=== PATIENT | female | born 1970 | race Two or more races ===

== ENCOUNTER → 2022-11-07 | Outpatient (CLI) | payer OTHER, SELFPAY ==
--- NOTE | 2022-11-07 | IMM_PTH ---
PATIENT: NINOSKA CASH LOC: [facility] U#:[id number] AGE/SX: 51/F ROOM: RE11/07/[address]: Dr. Ladi Ortega MD : 1970 BED: DIS: 11/07/2022 SPEC #: [id number] RECD: 11/11/22 13:12 STATUS: ANTHONY REQ #: [id number] LEON: 11/07/22 00:[address]: Ladi Ortega DEPT: IMMUNOHISTOCHEMISTRY RECD BY: Venessa Barrios ENTERED: 11/11/22 13:15 SP TYPE: IMMUNO OTHR DR: GERALD VILLALBA, DIGITAL MARKETING PROJECT MANAGER-C Tissues: Axillary lymph node, NOS Procedures: RCC (add) NAPSIN A (add) CK20 (add) CK5-6 (add) CK7 (add) CK8 (add) E-CAD (add) HEP PAR (add) HER2 KAE (add) KI-67 (add) MAMM (add) P53 (add) NC (add) TTF1 (add) Pankeratin (add) GATA3 (add) P40 (add) ER (initial) PHYSICIAN & INSTITUTION [place] [id number] SPECIMEN INFORMATION: Tissue Source: Right lymph node Clinical Info: Metastatic right breast cancer Specimen Number: [id number] CPT code: 03595, 15264 x14, 01790 x3 METHODOLOGY: Deparaffinized sections of prefer/formalin-fixed tissue or PAP/DQ stained slides are incubated with monoclonal/polyclonal antibodies/oligonucleotide probes. Localization is made via biotin free immunoperoxidase method. Appropriate controls are performed and reacted as expected. Results on target cell population are indicated in the following table: RESULTS: ANTIBODY / CLONE RESULT E-Cad (ECH-6) positive Mammaglobin (31A5) positive GATA3 (L50-823) positive, focal AE1-3 (AE1/AE3/PCK26) positive CK7 (OV-TL12/30) positive CK8 (80porxD19) positive CK20 (KS20.8) negative TTF-1 (8G7G3/1) negative Napsin A (Rabbit Polyclonal) negative HepPar (OCh1E5) negative RCC (PN-15) positive, focal CK5-6 (D5 & 1684) positive P40 (BC28) negative P53 (DO-7) negative, null pattern Ki-67 (30-9) positive, low ~1% MORPHOMETRIC ANALYSIS ER (clone 6F11) 0% NC (clone 16/1E2) 0% Her-2Neu (clone CB11) 3+ The prognostic test for HER2 is performed on formalin-fixed paraffin embedded tissue. A 3+ (positive) staining pattern is defined as intense, homogeneous, complete, circumferential membranous staining in >10% of contiguous tumor cells. A similar weak (2+) staining pattern is interpreted as equivocal. WAYNE follow-up testing is recommended for all equivocal cases. Positivity/negativity for ER/NC is reported if > or < 1% of the tumor cells are immuno- reactive, respectively. The ASCO/CAP criteria is used for scoring. Reference: Journal of Clinical Oncology, 2013; 31:1778-6563 & 2010; 16:9608-2951. Duration of fixation: 53.5 Hrs; Sample Adequate: Yes. These assays have not been validated on decalcified tissues. Results should be interpreted with caution given the likelihood of false negativity on decalcified specimens. These tests were developed and their performance characteristics determined by [facility]. They may not have been cleared or approved by the U.S. Food and Drug Administration. The FDA has determined that such clearance or approval is not necessary. The above immunohistochemical/dualISH markers are ordered and reviewed by the Pathologist. INTERPRETATION: Right lymph node, biopsy: Metastatic carcinoma, consistent with primary (ductal carcinoma). Negative for estrogen receptors (unfavorable prognostic indicator). Negative for progesterone receptors (unfavorable prognostic indicator). Positive for overexpression of HOV5xty. SJ:mark 11/12/2022
--- NOTE | 2022-11-07 | LYM_PTH ---
PATIENT: NINOSKA CASH LOC: [facility] U#:[id number] AGE/SX: 51/F ROOM: RE11/07/[address]: Dr. Ladi Ortega MD : 1970 BED: DIS: 11/07/2022 SPEC #: [id number] RECD: 11/07/22 14:03 STATUS: ANTHONY LALIT #: [id number] LEON: 11/07/22 00:[address]: Ladi Ortega DEPT: SURGICAL PATHOLOGY RECD BY: Isabel Mistry ENTERED: 11/10/22 09:32 SP TYPE: LYM NODES MANDI DR: DO GERALD [place], MEDICAL SOCIAL CONSULTANT-C Tissues: LYMPH NODE BIOPSY Procedures: Surgery Specimen Level IV HEADER OPERATION: Biopsy of right lymph node PRE-OP DIAGNOSIS: Metastatic right breast cancer TISSUE SUBMITTED: Right lymph node tissue MICROSCOPIC DIAGNOSIS Right lymph node tissue, core biopsy: Metastatic carcinoma consistent with breast primary (ductal carcinoma). See comment. SJ:mark 11/11/2022 COMMENT The metastatic tumor measures 0.8 cm in greatest length. Immunohistochemistry ([id number]) supports the above diagnosis. ER/VA/Ejx2pcu studies are being performed on sections of tumor and the results from this study will be reported separately ([id number]). Case has been reviewed in consultation with Dr. Bey who concurs with the above diagnosis. IDC:AM MICROSCOPIC DESCRIPTION Slides are reviewed. GROSS DESCRIPTION Received in saline and then post fixed in formalin is one container labeled with the patient's name and designated right lymph node tissue. The specimen consists of multiple elongated fragments of friedman-yellow fibroadipose tissue that in aggregate measure 1.5 x 0.3 x 0.1 cm. The specimen is totally submitted in one cassette. / MATEUSZ:mark 11/10/2022 TC:0 CPT: 15623
== END | disposition home or self-care (01) ==
PROVIDERS: PCP Registered Nurse; Referring Provider Surgery; Visit Provider Surgery
DX: C50.911 Malignant neoplasm of unspecified site of right female breast (principal); N63.10 Unspecified lump in the right breast, unspecified quadrant
CPT/HCPCS: 88305; 88341; 88342

== ENCOUNTER → 2022-11-11 | Outpatient (CLI) | payer OTHER, SELFPAY ==
--- NOTE | 2022-11-11 11:00 | US_ITS ---
STUDY: ABDOMINAL ULTRASOUND - RIGHT UPPER QUADRANT REASON FOR VISIT: Female, 51 years old jaundice, R/O biliary obstruction TECHNIQUE: Ultrasound evaluation of the right upper quadrant was performed with real-time and static canela-scale imaging. TECHNICAL QUALITY: Adequate. COMPARISON: None. FINDINGS: Liver: The liver measures 15.1 cm. There is a heterogeneous echogenicity of the liver. The bile ducts are dilated. There is hepatic color flow. The direction of portal flow is hepatopetal. Multiple hypoechoic solid nodular seen. The largest in the right lobe measures 4.8 cm x 5 cm x 2.7 cm. The largest in the left lobe measures 3.3 cm x 4.3 cm x 2.9 cm. Metastatic disease should be ruled out. Gallbladder: Normal distended gallbladder. The gallbladder wall measures 2.4 mm. There is a negative sonographic Murray''s sign. There is no pericholecystic fluid. There are no gallstones. Sludge is seen within the gallbladder lumen. Common Bile Duct (C.B.D.): The common bile duct is dilated and measures 7.9 mm. Pancreas: There is evidence of a 1.6 cm x 1.8 cm x 1 cm mass in the head of the pancreas. Right Kidney: Normal size of the right kidney. The right kidney measures 11.1 cm x 4.3 cm x 3.5 cm. Normal renal cortex. The right cortex measures 1.1 cm. There is no demonstrated renal mass or cyst. There is no right hydronephrosis. US/Liver IMPRESSION: Multiple solid nodules throughout the liver suggestive of metastatic deposits. 1.6 cm x 1.8 cm x 1 cm mass in the head of the pancreas. Sludge is seen within the gallbladder lumen. Intrahepatic biliary ductal dilatation as well as dilatation of the common bile duct. Electronically Signed: Matias Ward MD at 15:31 EDT ,
== END | disposition home or self-care (01) ==
PROVIDERS: PCP Registered Nurse; Referring Provider Student in an Organized Health Care Education/Training Program; Visit Provider Student in an Organized Health Care Education/Training Program
DX: R17 Unspecified jaundice (principal); K80.51 Calculus of bile duct without cholangitis or cholecystitis with obstruction
CPT/HCPCS: 76705

== ENCOUNTER 2022-11-13 16:50 | Inpatient (IN) | payer OTHER, SELFPAY ==
[2022-11-13 16:51] VITALS: BP 118/84; PULSE 111; RESP 18; TEMP 36.6; O2SAT 19; BMI 21.8
--- NOTE | 2022-11-13 17:27 | EX.ED.DYSGE1 ---
HPI History of Present Illness Chief Complaint: General Illness Informant: patient Narrative Narrative: 51-year-old female with history of stage IV metastatic breast cancer to the bones presenting with new onset of jaundice. Patient had outpatient blood work last week on 11/06 which showed elevated bilirubin as well as a transaminitis. She had outpatient ultrasound of the liver 2 days ago which showed multiple solid nodules of the liver suggestive of metastatic deposits, a mass in the head of the pancreas and intrahepatic biliary ductal dilation as well as dilation of the common bile duct. This is concerning for an obstructive process. Patient was seen by her radiation oncologist today and sent to the emergency room for further evaluation and GI consult. Patient notes she had her first radiation today. She continues to have significant back pain but has been going on for the past 2-month since her diagnosis. She does have a compression fracture. She is on 10 mg oral oxycodone every 6 hours. Because of that she has been dealing with some constipation. She did develop nausea after radiation today which is new. Patient is undergoing palliative radiation with Dr. Arnold. Patient denies any other complaints at this time. [facility] Medical History Breast cancer Compression fracture Constipation Juanita's disease Hypothyroid Home Medications mistletoe 0.05 mg/mL subcutaneous solution 0.5 mg subcut Q4D 11/06/22 [History Last Taken Unknown] levothyroxine 75 mcg capsule (Tirosint) 75 mcg PO DAILY THYROID 11/06/22 [History Last Taken 11/13/22] liothyronine 5 mcg tablet 5 mcg PO DAILY THYROID 11/06/22 [History Last Taken 11/13/22] melatonin 5 mg tablet 15 mg PO QHS SLEEP 11/13/22 [History Last Taken 11/12/22] oxycodone 5 mg tablet 10 mg PO Q6H pain 11/13/22 [History Last Taken 11/13/22] Allergy/AdvReac Type Severity Reaction Status Date / Time adhesive tape Allergy Mild Rash Verified 11/13/22 16:53 Iodinated Contrast Media Allergy Mild Rash Verified 11/13/22 16:53 Sulfa (Sulfonamide Allergy Mild Rash Verified 11/13/22 16:53 Antibiotics) Family History Father Depression ALS (amyotrophic lateral sclerosis) Sister Depression Grandmother Breast cancer Cervical cancer Mother Arthritis Social History Smoking Status: Never smoker alcohol intake: current alcohol intake frequency: holidays/special occasions only substance use type: does not use ROS ROS ED Constitutional Constitutional ED: Denies chills or fever(s) Respiratory/Chest Respiratory/Chest: Denies cough or dyspnea Gastrointestinal Gastrointestinal: Reports constipation and nausea; Denies abdominal pain, diarrhea or vomiting Musculoskeletal Musculoskeletal: Reports back pain; Denies arthralgias Integumentary Denies rash Neurologic Neurologic: Denies headache(s) EXAM Physical Exam Const Vital Signs: 11/13/22 16:51 11/13/22 17:44 11/13/22 18:20 Temperature 97.9 F 98.6 F Temperature Source Temporal Oral Pulse Rate 111 H 100 Respiratory Rate 18 18 Respiratory Effort Normal Non-Labored Respiratory Pattern Normal Blood Pressure 118/84 H 142/91 H Blood Pressure Mean 95 108 Pulse Ox 19 96 Oxygen Delivery Method Room Air Room Air Positive well nourished and well developed General Appearance ED: well developed and NAD HEENT Reports moist mucous membranes Eyes PERRL and EOMs intact bilaterally General Eye ED: Yes scleral icterus Neck supple Resp normal respiratory effort and clear to auscultation bilaterally Cardio regular rate, regular rhythm and no murmurs GI normal to inspection, nondistended, normoactive bowel sounds and non-tender Inspection: Negative for abdominal distention Extremity normal to inspection Neuro oriented x3 Sensorium / Orientation: alert Motor Exam: Negative for general weakness Psych mental status grossly normal Skin no rashes or lesions noted and no wounds MDM MDM MDM Narrative Medical decision making narrative: Patient is evaluated for concern of obstructive jaundice, likely from metastatic disease. Patient is undergoing palliative radiation treatment and has metastatic breast cancer. She has been dealing with severe back pain associated with this and has associated compression fractures. She had outpatient ultrasound which showed signs of biliary ductal dilation as well as a pancreatic head mass. Lab work is obtained. Patient given IV morphine and Zofran. She started on IV Zosyn and CT of the abdomen pelvis is obtained after discussion with GI on-call, Dr. Holland. Likely he will perform ERCP tomorrow. Patient be admitted to the hospitalist service. Patient is informed of this plan of care. Case is discussed with admitting physician, Dr. Castro. Lab Data Attestation: I reviewed the patient's lab results. Labs: Laboratory Results - last 24 hr 11/13/22 11/13/22 17:15 17:30 WBC 7.4 RBC 4.18 L Hgb 11.8 L Hct 37.8 MCV 90.4 MCH 28.2 MCHC 31.2 L RDW Std Deviation 49.4 H RDW Coeff of Gina 15.3 H Plt Count 477 H MPV 9.0 Immature Gran % (Auto) 1.500 H Neut % (Auto) 76.3 H Lymph % (Auto) 9.7 L [place] % (Auto) 11.3 H Eos % (Auto) 0.5 Baso % (Auto) 0.7 Absolute Neuts (auto) 5.7 Absolute Lymphs (auto) 0.72 L Nucleated RBC % 0 Sodium 133 L Potassium 4.0 Chloride 94 L Carbon Dioxide 26.0 Anion Gap 13 BUN 8 Creatinine 0.60 Estim Creat Clear Calc 79.68 Est GFR (MDRD) Af Amer 136 Est GFR (MDRD) Non-Af 113 BUN/Creatinine Ratio 13.4 Glucose 98 Calcium 9.9 Total Bilirubin 8.40 H Direct Bilirubin 6.81 H AST 282 H ALT 171 H Alkaline Phosphatase 951 H Total Protein 7.5 Albumin 2.6 L Globulin 4.9 H Lipase 71 Urine Color Brown Urine Clarity Clear Urine pH 6.0 Ur Specific [place] 1.025 Urine Protein 30 H Urine Glucose (UA) Normal Urine Ketones 150 A* Urine Occult Blood 10 H Urine Nitrite Positive H Urine Bilirubin 6 H Urine Urobilinogen 4 H Ur Leukocyte Esterase 25 H Urine RBC 0 SEEN Urine WBC 0-5 SEEN Ur Squamous Epith Cells 0-5 SEEN Urine Bacteria 1+ Urine Mucus 0 SEEN Radiography Diagnostic Testing: Clinical Impression(s) from Imaging Studies Abdomen/Pelvis CT 11/13/22 17:39 IMPRESSION: (NOT LISTED IN ORDER OF SIGNIFICANCE) 63 mm soft tissue mass with calcifications of the right breast. Diffuse right breast skin thickening concerning for breast carcinoma. 15 mm medial right breast nodule may be a metastatic focus. There is a pathologic compression fracture of T12. There is bilateral pneumonia. There are bilateral pleural effusions. Stable diffuse metastatic lesions to the liver. Diffuse retroperitoneal adenopathy. 11 mm dilated common bile duct with a soft tissue mass around the level of the pancreatic head. This may be a pancreatic mass versus adenopathy. Stable diffuse metastatic disease in the bones. Other findings as above. Electronically Signed: Marco Gill MD at 18:20 EDT , Management Discussion w/another healthcare provider: Hospitalist and Cold Storage Supervisor Discharge Plan Triage Chief Complaint: General Illness ED Provider: Shy Stout Dx/Rx/DC Orders Clinical Impression: Blockage of a bile duct, Stage IV breast cancer in female, Jaundice, Mass of head of pancreas Prescriptions: No Action levothyroxine [Tirosint] 75 mcg capsule 75 mcg PO DAILY liothyronine 5 mcg tablet 5 mcg PO DAILY mistletoe 0.05 mg/mL solution 0.5 mg subcut Q4D oxycodone 5 mg tablet 10 mg PO Q6H melatonin 5 mg tablet 15 mg PO QHS Primary Care Provider: GERALD VILLALBA Referrals: GERALD VILLALBA, NEW CAR INSPECTOR-C [Primary Care Provider] - Disposition Disposition: Acute Care Hospital [facility]
[2022-11-13 17:39] LABS: Mucous, Urine 0 SEEN /hpf (<or=2+); Red Blood Cells-Urine 0 SEEN /hpf (0-5)
[2022-11-13] MEDS: Morphine 4 MG/ML Syringe IV (17:39)
--- NOTE | 2022-11-13 17:39 | CT_ITS ---
STUDY: CT Abdomen And Pelvis W/O Contrast Injection 11/13/2022 6:13 PM REASON FOR EXAM: Female, 51 years old. Patient with known cancer PAIN liver mass, obstruction TECHNIQUE: Transaxial images were obtained without oral contrast, and without intravenous contrast. Individualized dose optimization techniques were used for this CT. COMPARISON: ct 7. FINDINGS: 63 mm soft tissue mass with calcifications of the right breast. Diffuse right breast skin thickening concerning for breast carcinoma. 15 mm medial right breast nodule may be a metastatic focus. There is bilateral pneumonia. There are bilateral pleural effusions. There are multiple lesions noted in the liver which are likely related to metastatic disease. Unremarkable gallbladder and extrahepatic biliary system. Unremarkable spleen. Unremarkable pancreas. 11 mm dilated common bile duct with a soft tissue mass around the level of the pancreatic head. This may be a pancreatic mass versus adenopathy. Unremarkable bilateral adrenal glands. No acute findings of the right kidney. No acute findings of the left kidney. Unremarkable visualized stomach. Unremarkable small intestine. Unremarkable colon. There is non-visualization of the appendix. There are no acute findings of the abdominal aorta. Unremarkable inferior vena cava. Subcentimeter mesenteric lymph nodes. Multiple enlarged retroperitoneal lymph nodes. This surrounds the aorta. Unremarkable urinary bladder. Normal visualized uterus. There is a linear heterogeneous density in the vagina. This a tampon. Unremarkable abdominal wall. Metastatic lesions in the T11 to L3 vertebral bodies. There is a pathologic compression fracture of T12. Lytic destructive focus along the left symphysis pubis. Lytic focus along the right acetabulum. Lytic destructive focus along the right iliac wing. Lytic lesions in the sacrum and medial right iliac bone. Healed right rib fracture CT/Abdomen/Pelvis without Cont IMPRESSION: (NOT LISTED IN ORDER OF SIGNIFICANCE) 63 mm soft tissue mass with calcifications of the right breast. Diffuse right breast skin thickening concerning for breast carcinoma. 15 mm medial right breast nodule may be a metastatic focus. There is a pathologic compression fracture of T12. There is bilateral pneumonia. There are bilateral pleural effusions. Stable diffuse metastatic lesions to the liver. Diffuse retroperitoneal adenopathy. 11 mm dilated common bile duct with a soft tissue mass around the level of the pancreatic head. This may be a pancreatic mass versus adenopathy. Stable diffuse metastatic disease in the bones. Other findings as above. Electronically Signed: Marco Gill MD at 18:20 EDT ,
[2022-11-13] MEDS: Ondansetron 4 MG/2 ML Vial IV ×2 (17:40→21:55)
[2022-11-13] MEDS: 0.9% Normal Saline 1,000 ML 125 ML IV (17:40)
[2022-11-13 17:51] LABS: Color, Urine Brown (Yellow); Glucose, Dipstick Normal (Normal); Leukocyte Esterase-Dipstick 25 /ul (Negative); Nitrite-Dipstick Positive (Negative); Occult Blood-Urine 10 /ul (Negative); Protein-Dipstick 30 mg/dl (Negative); Specific Gravity, Urine 1.025 (1.002-1.030); Urine Clarity Clear (Clear); Urine Urobilinogen 4 mg/dl (Normal)
[2022-11-13 18:05] LABS: Urine Bilirubin Dipstick 6 mg/dL (Negative)
[2022-11-13 18:07] LABS: Ketone-Dipstick 150 mg/dl (Negative)
[2022-11-13 18:16] LABS: Absolute Lymphocyte Count 0.72 X10^3/uL (0.83-4.51); Absolute Neutrophil Count 5.7 X10^3/uL (2.0-7.7); Basophil# 0.05 X10^3/uL; Basophil% 0.7 % (0-1); Eosinophil# 0.04 X10^3/uL; Eosinophils% 0.5 % (0-5); Hematocrit 37.8 % (37-47); Hemoglobin 11.8 g/dL (12.0-15.0); Lymphocyte # 0.72 X10^3/ul (0.83-4.51); Lymphocyte % 9.7 % (19-41); Mean Corp Hgb Conc 31.2 g/dL (32-36); Mean Corpuscular Hgb 28.2 pg (27.0-32.0); Mean Corpuscular Volume 90.4 fL (81-99); Monocyte# 0.84 X10^3/uL; Monocyte% 11.3 % (0-10); NRBC Flagged by Analyzer 0 % (0-5); Neutrophil # 5.68 X10^3/uL (2.7-7.7); Neutrophil % 76.3 % (47-70); Platelet Count 477 K/mm3 (150-450); RBC Distribution Width CV 15.3 % (11.6-14.6); RBC Distribution Width SD 49.4 fl (35.1-43.9); Red Blood Count 4.18 M/mm3 (4.2-5.4); White Blood Count 7.4 K/mm3 (4.4-11.0)
[2022-11-13 18:20] VITALS: BP 142/91; PULSE 100; RESP 18; TEMP 37; O2SAT 96
[2022-11-13 18:22] LABS: AST(SGOT) 282 U/L (15-37); Alanine Aminotransfer ALT/SGPT 171 U/L (13-56); Albumin, Serum 2.6 g/dL (3.2-5.0); Alkaline Phosphatase 951 U/L (45-117); Anion Gap 13 (5-15); BUN 8 mg/dL (7-18); BUN/Creat Ratio 13.4 RATIO (10-20); Bilirubin, Direct 6.81 mg/dL (0.00-0.30); Calcium,Total 9.9 mg/dL (8.5-10.1); Chloride 94 mmol/L (98-107); EST Glomerular Filtration Rate 113 mL/min (>60); Est Glom Filt Rate - Afr Amer 136 mL/min (>60); Estimated Creatinine Clearance 79.68 ml/min; Globulin 4.9 g/dL (2.2-4.2); Glucose 98 mg/dL (74-106); Lipase 71 U/L (13-75); Protein, Total 7.5 g/dL (6.4-8.2); Sodium Level 133 mmol/L (136-145)
[2022-11-13 18:34] LABS: White Blood Cells 0-5 SEEN /hpf (0-5)
[2022-11-13 18:35] LABS: Bacteria 1+ /hpf (None Seen); Squamous Epithelial Cells - UA 0-5 SEEN /hpf (5-10)
[2022-11-13 20:12] VITALS: BP 148/83; PULSE 100; RESP 18; TEMP 37; O2SAT 96
[2022-11-13 20:25] VITALS: BMI 22.6
[2022-11-13 20:33] VITALS: BP 124/83; PULSE 101; RESP 17; TEMP 37.3; O2SAT 93
--- NOTE | 2022-11-13 21:07 | HP.PCM.HOS_ITS ---
HPI - General General Date of Admission: 11/13/22 HPI Narrative NINOSKA CASH, is a 51 F who presents to the hospital with worsening jaundice and elevated liver enzymes. 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 She has developed metastatic lesions in her spine and had her first dose of palliative radiation today to help treat pain. She is currently on 10 mg of oxycodone every 6 hours without any significant relief. She had lab work done by her radiation onco logist which demonstrated the elevation in her liver enzymes including her total bilirubin. She is jaundiced and does have some pruritus. CT scan of her abdomen and pelvis shows a possible pancreatic head mass versus lymph node that is causing the obstruction gastroenterology was notified by the ER for ERCP and stent placement. [facility] Medical History Breast cancer Compression fracture Constipation Juanita's disease Hypothyroid Home Medications mistletoe 0.05 mg/mL subcutaneous solution 0.5 mg subcut Q4D 11/06/22 [History Last Taken Unknown] levothyroxine 75 mcg capsule (Tirosint) 75 mcg PO DAILY THYROID 11/06/22 [History Last Taken 11/13/22] liothyronine 5 mcg tablet 5 mcg PO DAILY THYROID 11/06/22 [History Last Taken 0 11/13/22] melatonin 5 mg tablet 15 mg PO QHS SLEEP 11/13/22 [History Last Taken 11/12/22] oxycodone 5 mg tablet 10 mg PO Q6H pain 11/13/22 [History Last Taken 11/13/22] Allergy/AdvReac Type Severity Reaction Status Date / Time adhesive tape Allergy Mild Rash Verified 11/13/22 16:53 Iodinated Contrast Media Allergy Mild Rash Verified 11/13/22 16:53 Sulfa (Sulfonamide Allergy Mild Rash Verified 11/13/22 16:53 Antibiotics) Family History Father Depression ALS (amyotrophic lateral sclerosis) Sister Depression Grandmother Breast cancer Cervical cancer Mother Arthritis no surgical history Social History Smoking Status: Never smoker alcohol intake: current alcohol intake frequency: holidays/special occasions only substance use type: does not use ROS Constitutional Constitutional: Denies chills, fatigue, fever(s) or malaise Eyes Eyes: Reports other Details: Scleral icterus ; Denies blurry vision ENT HEENT: Denies headache(s) or nasal discharge Cardiovascular Cardiovascular: Denies chest pain, dyspnea on exertion or syncope Respiratory/Chest Respiratory/Chest: Denies cough, shortness of breath at rest or shortness of breath with exertion Gastrointestinal Gastrointestinal: Denies constipation, diarrhea, nausea or vomiting Genitourinary Genitourinary: Denies dysuria Integumentary Integumentary: Reports jaundice and pruritus Neurologic Neurologic: Denies focal weakness, numbness or tremor(s) Psychiatric Psychiatric: Denies anxiety or depression Vital Signs Vital Signs Vital Signs: 11/13/22 16:51 11/13/22 17:44 11/13/22 18:20 Temperature 97.9 F 98.6 F Temperature Source Temporal Oral Pulse Rate 111 H 100 Respiratory Rate 18 18 Respiratory Effort Normal Non-Labored Respiratory Pattern Normal Blood Pressure 118/84 H 142/91 H Blood Pressure Mean 95 108 Blood Pressure Source Blood Pressure Position Blood Pressure Location Pulse Ox 19 96 Oxygen Delivery Method Room Air Room Air 11/13/22 20:12 11/13/22 20:33 Temperature 98.6 F 99.1 F Temperature Source Oral Oral Pulse Rate 100 101 H Respiratory Rate 18 17 Respiratory Effort Respiratory Pattern Blood Pressure 148/83 H 124/83 H Blood Pressure Mean 104 96 Blood Pressure Source Monitor Blood Pressure Position Semi-Fowlers Blood Pressure Location Right Arm Pulse Ox 96 93 Oxygen Delivery Method Room Air Room Air Weight Weight: 116 lb 2.938 oz Body Mass Index (BMI) 22.6 Physical Exam Narrative General: Alert, Oriented x3, Cooperative, No apparent distress HEENT: Atraumatic, PERRLA, EOMI, Normocephalic, scleral icterus Oral: Moist Mucosa Neck: Supple, No JVD Lungs: Clear to auscultation, Normal air movement, No rhonchi, No wheeze, No rales Cardiovascular: Regular rate, Regular Rhythm, Normal S1, Normal S2, No murmurs Abdomen: Soft, Non Tender, Non-Distended, No Hepato-splenomegaly Extremities: No edema, Capillary Refill Less than 3 Seconds Skin: No rashes, No breakdown, jaundice Musculoskeletal: No Tenderness to Palpation of Joints or Extremities Neurological: Cranial nerves II-XII grossly intact, Motor Exam 5/5 strength throughout, Sensory exam intact to light touch and pain Psych/Mental Status: Normal Affect, Appropriate Results Lab / Micro Data 11/13/22 17:15 11/13/22 17:15 Labs: Laboratory Results - last 24 hr 11/13/22 17:15: WBC 7.4, RBC 4.18 L, Hgb 11.8 L, Hct 37.8, MCV 90.4, MCH 28.2, MCHC 31.2 L, RDW Std Deviation 49.4 H, RDW Coeff of Gina 15.3 H, Plt Count 477 H, MPV 9.0, Immature Gran % (Auto) 1.500 H, Neut % (Auto) 76.3 H, Lymph % (Auto) 9.7 L, [place] % (Auto) 11.3 H, Eos % (Auto) 0.5, Baso % (Auto) 0.7, Absolute Neuts (auto) 5.7, Absolute Lymphs (auto) 0.72 L, Nucleated RBC % 0, Sodium 133 L, Potassium 4.0, Chloride 94 L, Carbon Dioxide 26.0, Anion Gap 13, BUN 8, Creatinine 0.60, Estim Creat Clear Calc 79.68, Est GFR (MDRD) Af Amer 136, Est GFR (MDRD) Non-Af 113, BUN/Creatinine Ratio 13.4, Glucose 98, Calcium 9.9, Total Bilirubin 8.40 H, Direct Bilirubin 6.81 H, AST 282 H, ALT 171 H, Alkaline Phosphatase 951 H, Total Protein 7.5, Albumin 2.6 L, Globulin 4.9 H, Lipase 71 11/13/22 17:30: Urine Color Brown, Urine Clarity Clear, Urine pH 6.0, Ur Specific [place] 1.025, Urine Protein 30 H, Urine Glucose (UA) Normal, Urine Ketones 150 A*, Urine Occult Blood 10 H, Urine Nitrite Positive H, Urine Bilirubin 6 H, Urine Urobilinogen 4 H, Ur Leukocyte Esterase 25 H, Urine RBC 0 SEEN, Urine WBC 0-5 SEEN, Ur Squamous Epith Cells 0-5 SEEN, Urine Bacteria 1+, Urine Mucus 0 SEEN Radiology Impression Abdomen/Pelvis CT 11/13/22 17:39 IMPRESSION: (NOT LISTED IN ORDER OF SIGNIFICANCE) 63 mm soft tissue mass with calcifications of the right breast. Diffuse right breast skin thickening concerning for breast carcinoma. 15 mm medial right breast nodule may be a metastatic focus. There is a pathologic compression fracture of T12. There is bilateral pneumonia. There are bilateral pleural effusions. Stable diffuse metastatic lesions to the liver. Diffuse retroperitoneal adenopathy. 11 mm dilated common bile duct with a soft tissue mass around the level of the pancreatic head. This may be a pancreatic mass versus adenopathy. Stable diffuse metastatic disease in the bones. Other findings as above. Electronically Signed: Marco Gill MD at 18:20 EDT , Assessment & Plan Assessment/Plan (1) Mass of head of pancreas: (2) Blockage of a bile duct: (3) Jaundice: PLAN: Plan 1. Pancreatic head mass with biliary obstruction with jaundice ? We will consult gastroenterology for ERCP and stent placement ? We will place on IV fluids and make her n.p.o. after midnight 2. Stage IV breast cancer with metastasis to bone ? Currently receiving palliative radiation had her first dose today ? She is currently on 10 mg of oxycodone every 6 hours that does not appear to be helping so we will also add OxyContin 10 mg twice daily scheduled and monitor ? I did have a 20-minute conversation on advance care planning including CODE STATUS discussion as well as palliative versus hospice given her diagnoses. 3. Hypothyroidism ? Stable ? Continue with her home meds DVT: Lovenox 75 minutes was spent on direct patient care, including documentation as well as chart review and collaboration with colleagues Charges/Coding Visit Charges Inpatient E&M: 52166 Init Hosp L3 Procedures Hospitalists Procedures: 16826 Advncd Care Plan 30 Min
[2022-11-13] MEDS: oxyCODONE HCl Cr 10 MG Tablet PO (21:43)
[2022-11-13] MEDS: 0.9% Normal Saline 1,000 ML 100 ML IV (21:43)
[2022-11-13] MEDS: MELATONIN 10 MG TABLET 15 MG PO (21:55)
[2022-11-13] MEDS: oxyCODONE 5 MG Tablet 10 MG PO (23:28)
[2022-11-14] VITALS (9 sets, daily range): BP systolic 119–132; BP diastolic 71–83; PULSE 84–96; RESP 14–16; TEMP 36.1–37.2; O2SAT 94–97; BMI 22.6
[2022-11-14] MEDS: Levothyroxine 75 MCG Tablet PO (05:36)
[2022-11-14] MEDS: Liothyronine 5 MCG Tablet PO (05:36)
[2022-11-14] MEDS: oxyCODONE 5 MG Tablet 10 MG PO ×2 (05:36→18:45)
--- NOTE | 2022-11-14 06:00 | RAD_ITS ---
rScriptor Unformatted Report Format: Options: n 2f 2i act cap dr alvarez wm wcta sl lj Gender: Female Age: 51 years Exam: XR Chest 1 View Comparison: CT scan abdomen and pelvis 11/13/2022. History: preoperative, radiation of breast preoperative, radiation of breast Radiation: CTDIvol = [ ] mGy, DLP = [ ] mGy-cm Contrast: There is mild shaped thoracic scoliosis. There is destruction of the posterior segment of the right seventh rib, which is probably due to metastatic lesion. Multiple osteolytic lesions are seen on CT scan. There is mild atelectasis in the visualized lower lung wang. There are small bilateral pleural effusions. There is an apparent 2.4 cm rounded density overlying the right lung base on this plain film study, however, there is no corresponding mass on CT scan and this is probably overlying artifact. Impression. Small bilateral pleural effusions. Bilateral basilar atelectasis. Impression. A 2.4 cm right basilar rounded density is probably an overlying artifact, given that there is no corresponding lung mass on recent CT scan. No visualized pulmonary consolidations. Impression. Destruction of the posterior segment of the right seventh rib, consistent with an osteolytic metastatic lesion. More numerous osteolytic lesions are visible on CT scan. Electronically Signed: Baljeet Donahue MD at 7:32 EDT , RAD/Chest 1 View (Portable) IMPRESSION: undefined
--- NOTE | 2022-11-14 06:00 | EKG12_ITS ---
Test Reason : PRE OP Blood Pressure : / mmHG Vent. Rate : 079 BPM Atrial Rate : 079 BPM P-R Int : 118 ms QRS Dur : 062 ms QT Int : 332 ms P-R-T Axes : 006 052 009 degrees QTc Int : 380 ms Normal sinus rhythm Low voltage QRS Septal infarct , age undetermined Abnormal ECG No previous ECGs available Confirmed by CLARITA RIDER, VICTORIA ([id number]), school photograph editor GUS BLUM ([id number]) on 11/14/2022 1:40:57 PM Referred By: ANDERSON Confirmed By:VICTORIA OTTO MD
[2022-11-14 06:24] LABS: Absolute Lymphocyte Count 0.43 X10^3/uL (0.83-4.51); Absolute Neutrophil Count 3.9 X10^3/uL (2.0-7.7); Basophil# 0.03 X10^3/uL; Basophil% 0.6 % (0-1); Eosinophil# 0.09 X10^3/uL; Eosinophils% 1.7 % (0-5); Hematocrit 33.7 % (37-47); Hemoglobin 10.8 g/dL (12.0-15.0); Lymphocyte # 0.43 X10^3/ul (0.83-4.51); Lymphocyte % 8.1 % (19-41); Mean Corpuscular Hgb 28.3 pg (27.0-32.0); Mean Corpuscular Volume 88.2 fL (81-99); Mean Platelet Vol. 8.8 fl (6.2-12.0); Monocyte# 0.71 X10^3/uL; Monocyte% 13.4 % (0-10); NRBC Flagged by Analyzer 0 % (0-5); Neutrophil # 3.94 X10^3/uL (2.7-7.7); Neutrophil % 74.7 % (47-70); POSITIVE DIFFERENTIAL YES; Platelet Count 404 K/mm3 (150-450); RBC Distribution Width CV 15.1 % (11.6-14.6); RBC Distribution Width SD 48.5 fl (35.1-43.9); Red Blood Count 3.82 M/mm3 (4.2-5.4); White Blood Count 5.3 K/mm3 (4.4-11.0)
[2022-11-14 06:28] LABS: Differential Indicated SCAN CRITERIA MET
[2022-11-14 06:59] LABS: Differential Comment SCANNED
[2022-11-14] MEDS: Lactated Ringers 1,000 ML 15 ML IV (07:00)
[2022-11-14 07:11] LABS: ALB/GLOB Ratio 0.5 RATIO (0.9-2.4); AST(SGOT) 229 U/L (15-37); Alanine Aminotransfer ALT/SGPT 144 U/L (13-56); Albumin, Serum 2.2 g/dL (3.2-5.0); Alkaline Phosphatase 917 U/L (45-117); Anion Gap 8 (5-15); BUN 5 mg/dL (7-18); BUN/Creat Ratio 9.9 RATIO (10-20); Calcium,Total 9.3 mg/dL (8.5-10.1); Chloride 99 mmol/L (98-107); Creatinine, Serum 0.51 mg/dL (0.55-1.02); EST Glomerular Filtration Rate 136 mL/min (>60); Est Glom Filt Rate - Afr Amer 164 mL/min (>60); Estimated Creatinine Clearance 93.74 ml/min; Globulin 4.3 g/dL (2.2-4.2); Glucose 86 mg/dL (74-106); Potassium 3.7 mmol/L (3.5-5.1); Protein, Total 6.5 g/dL (6.4-8.2); Sodium Level 134 mmol/L (136-145)
[2022-11-14] MEDS: 0.9% Normal Saline 1,000 ML 100 ML IV (07:25)
[2022-11-14] MEDS: Ondansetron 4 MG/2 ML Vial IV (08:23)
[2022-11-14] MEDS: 0.9% Saline Lock 10 ML Syringe IV ×2 (08:23→22:02)
--- NOTE | 2022-11-14 08:26 | PCM.PN.HOSP ---
Reason for Visit Reason for Visit: Diagnoses Obstruction of bile duct (11/13/22) Other specified diseases of pancreas (11/13/22) Unspecified jaundice (11/13/22) Subjective Subjective Feels well. Objective Data Objective Data Vital Signs: Vital Signs Temp Pulse Resp BP Pulse Ox O2 Del Method 36.6 C 92 16 121/73 H 94 Room Air 11/14/22 08:07 11/14/22 08:07 11/14/22 08:07 11/14/22 08:07 11/14/22 08:07 11/14/22 08:07 Oxygen Delivery Method Room Air Weight: 52.7 kg Body Mass Index (BMI) 22.6 Intake & Output: Intake and Output for Last 24 Hours 11/12/22 11/13/22 11/14/22 23:59 23:59 23:59 Intake Total 50 / 450 2620 / 2620 Output Total 850 / 850 Balance 50 / 200 1770 / 1770 Lab / Micro Data 11/14/22 06:04 11/14/22 06:04 Labs: Laboratory Results - last 24 hr 11/13/22 17:15: WBC 7.4, RBC 4.18 L, Hgb 11.8 L, Hct 37.8, MCV 90.4, MCH 28.2, MCHC 31.2 L, RDW Std Deviation 49.4 H, RDW Coeff of Gina 15.3 H, Plt Count 477 H, MPV 9.0, Immature Gran % (Auto) 1.500 H, Neut % (Auto) 76.3 H, Lymph % (Auto) 9.7 L, [place] % (Auto) 11.3 H, Eos % (Auto) 0.5, Baso % (Auto) 0.7, Absolute Neuts (auto) 5.7, Absolute Lymphs (auto) 0.72 L, Nucleated RBC % 0, Sodium 133 L, Potassium 4.0, Chloride 94 L, Carbon Dioxide 26.0, Anion Gap 13, BUN 8, Creatinine 0.60, Estim Creat Clear Calc 79.68, Est GFR (MDRD) Af Amer 136, Est GFR (MDRD) Non-Af 113, BUN/Creatinine Ratio 13.4, Glucose 98, Calcium 9.9, Total Bilirubin 8.40 H, Direct Bilirubin 6.81 H, AST 282 H, ALT 171 H, Alkaline Phosphatase 951 H, Total Protein 7.5, Albumin 2.6 L, Globulin 4.9 H, Lipase 71 11/13/22 17:30: Urine Color Brown, Urine Clarity Clear, Urine pH 6.0, Ur Specific [place] 1.025, Urine Protein 30 H, Urine Glucose (UA) Normal, Urine Ketones 150 A*, Urine Occult Blood 10 H, Urine Nitrite Positive H, Urine Bilirubin 6 H, Urine Urobilinogen 4 H, Ur Leukocyte Esterase 25 H, Urine RBC 0 SEEN, Urine WBC 0-5 SEEN, Ur Squamous Epith Cells 0-5 SEEN, Urine Bacteria 1+, Urine Mucus 0 SEEN 11/14/22 06:04: WBC 5.3, RBC 3.82 L, Hgb 10.8 L, Hct 33.7 L, MCV 88.2, MCH 28.3, MCHC 32.0, RDW Std Deviation 48.5 H, RDW Coeff of Gina 15.1 H, Plt Count 404, MPV 8.8, Immature Gran % (Auto) 1.500 H, Neut % (Auto) 74.7 H, Lymph % (Auto) 8.1 L, [place] % (Auto) 13.4 H, Eos % (Auto) 1.7, Baso % (Auto) 0.6, Absolute Neuts (auto) 3.9, Absolute Lymphs (auto) 0.43 L, Nucleated RBC % 0, Differential Comment SCANNED, Sodium 134 L, Potassium 3.7, Chloride 99, Carbon Dioxide 27.0, Anion Gap 8, BUN 5 L, Creatinine 0.51 L, Estim Creat Clear Calc 93.74, Est GFR (MDRD) Af Amer 164, Est GFR (MDRD) Non-Af 136, BUN/Creatinine Ratio 9.9 L, Glucose 86, Calcium 9.3, Total Bilirubin 7.50 H, AST 229 H, ALT 144 H, Alkaline Phosphatase 917 H, Total Protein 6.5, Albumin 2.2 L, Globulin 4.3 H, Albumin/Globulin Ratio 0.5 L, TSH 12.50 H Radiography Diagnostic Testing: Radiology Impression Abdomen/Pelvis CT 11/13/22 17:39 IMPRESSION: (NOT LISTED IN ORDER OF SIGNIFICANCE) 63 mm soft tissue mass with calcifications of the right breast. Diffuse right breast skin thickening concerning for breast carcinoma. 15 mm medial right breast nodule may be a metastatic focus. There is a pathologic compression fracture of T12. There is bilateral pneumonia. There are bilateral pleural effusions. Stable diffuse metastatic lesions to the liver. Diffuse retroperitoneal adenopathy. 11 mm dilated common bile duct with a soft tissue mass around the level of the pancreatic head. This may be a pancreatic mass versus adenopathy. Stable diffuse metastatic disease in the bones. Other findings as above. Electronically Signed: Marco Gill MD at 18:20 EDT , Chest X-Ray 11/14/22 06:00 IMPRESSION: undefined Physical Exam Const alert and no apparent distress Resp normal respiratory effort and no retractions Cardio regular rate, regular rhythm, S1 normal heart sound and S2 normal heart sound GI normal to inspection, nondistended, normoactive bowel sounds, soft to palpation, non-tender and non-distended Skin Skin Narrative: jaundiced. Assessment & Plan Assessment/Plan (1) Mass of head of pancreas: PLAN: Primary pancreatic lesion v metastatic lesion (breast CA) v adenopathy Causing compression on CBD, which is dilated at 11mm GI consult to eval for palliative stent Pt undergoing palliative XRT for stage IV breast CA. Aggressive work up for the pancreatic mass would likely not change her mgmt (2) Stage IV breast cancer in female: PLAN: Stage IV breast cancer with metastasis to bone Currently receiving palliative radiation had her first dose today She is currently on 10 mg of oxycodone every 6 hours that does not appear to be helping so we will also add OxyContin 10 mg twice daily scheduled and monitor DW Dr. Arnold. He would like for patient to have a Rx for Zofran available as outpt as she became very nauseated with treatment. PLAN: Plan Chronic conditions: Hypothyroidism? Stable? Continue with her home meds DVT: Lovenox Charges/Coding Visit Charges Inpatient E&M: 72283 Subs Hosp L2
[2022-11-14] MEDS: oxyCODONE HCl Cr 10 MG Tablet PO ×2 (10:06→22:01)
--- NOTE | 2022-11-14 12:50 | CASEMGMT ---
MEBLA DAVEY Assessment: Face to Face with pt for initial transition planning/care coordination assessment. RN CM introduced self and role at [facility], pt voices understanding and consents to assessment. Pt is A/O x4 and answers all questions appropriately at this time. Pt lying in bed in no distress with her at bedside. Care providers, pharmacy, and demographics verified/updated. Admitting Dx: jaundice with common bile duct obstruction PCP:Radha Tomlinson MEDICAL ATTENDANT Specialists:porsche Arnold onc; arturo Watt onc; Lakeisha Michael for homeopathic tx [facility] [place] [place] [employer] Prescription Benefit: yes LNOK: Kevin Matute, Living Arrangements: Pt lives with in a two story home with 2 steps to enter. Pt reports she is I in ADL's and denies concerns at home. Transportation: Pt drives self and denies concerns with transportation. DME/HHC/SNF: Pt denies having any DME in the home, previous HHC or SNF stays. Pt states no concerns with going home at time of dc. Pt states no further concerns/needs. CM to follow. Advised pt to ask CM if any further question/concerns/needs arise, voices understanding. Pt Goal: Home Plan: Home
--- NOTE | 2022-11-14 13:53 | WOUNDNOTE ---
wound photo: right breast
--- NOTE | 2022-11-14 15:15 | FLU_PTH ---
PATIENT: NINOSKA CASH LOC: [facility] U#:[id number] AGE/SX: 51/F ROOM: DE316 RE11/13/[address]: Dr. Saulo Calderon DO : 1970 BED: 1 DIS: 11/15/2022 SPEC #: [id number] RECD: 11/14/22 17:09 STATUS: ANTHONY REQ #: [id number] LEON: 11/14/22 15:[address]: Darnell Holland DEPT: CYTOLOGY RECD BY: Isabel Mistry ENTERED: 11/17/22 08:34 SP TYPE: Fluid OTHR DR: DO Dr. Jean Ramirez MD [employer]-C Tissues: A - Bile duct, NOS B - Bile duct, NOS Procedures: Special Stain Group II Surgery Specimen Level IV Cytospin Fluid Cytology Other Comments: @ Ordering doctor for SSII edited from to @ by RENNY at 11/17/22 1505 @ Ordering doctor for SUIV edited from to @ by RENNY at 11/17/22 1505 @ Ordering doctor for CYSPIN edited from to @ by RENNY at 11/17/22 1505 @ Ordering doctor for CYOTHER edited from to @ by RENNY at 11/17/22 1505 @ Submitting doctor edited from to @ by MARYOD at 11/17/22 1505 HEADER OPERATION: ERCP, brushings, stent placement PRE-OP DIAGNOSIS: Mass of head of pancreas, blockage of bile duct, jaundice TISSUE SUBMITTED: A - Biliary stricture brushings, B - Biliary stricture brushings brush tip x3 DIAGNOSIS CYTOLOGY A. Biliary stricture brushing fluid (cytospin and cell block): Negative for malignant cells. B. Biliary stricture brushings (smears): Negative for malignant cells. See comment. SJ:mark 11/18/2022 COMMENT B. Numerous squamous cells are also noted. Correlation with clinical, radiologic findings and appropriate follow up are necessary. Please make reference to previous specimen ([id number]) right lymph node, core biopsy with diagnosis of metastatic carcinoma, consistent with breast primary (ductal carcinoma). Case has been reviewed in consultation with Dr. eBy who concurs with the above diagnosis. IDC:AM CYTOLOGY STUDY Slides are reviewed. CYTOLOGY GROSS A - Received is a metallic endoscopic cytobrush with adherent minute fragments of friedman-red tissue brush in 2 ml of clear red fluid and labeled with the patient's name and and designated per the requisition as brush. The material is dislodged from the brush and submitted for cytology preparation including cell block. B - Received is a metallic endoscopic cytobrush with adherent minute fragments of friedman-red tissue brush in 2 ml of clear red fluid and labeled with the patient's name and and designated per the requisition as brush tip x3. The material is dislodged from the brush and submitted for cytology preparation including cell block. / mark 11/17/2022 TC:5 CPT: 31583, 82601, 87979
--- NOTE | 2022-11-14 15:46 | PCM.DC ---
Discharge Instructions Diet Discharge Diet: No restrictions Dressing / Incision Call your doctor if you observe: - (worsening abdominal pain) Follow Up Care Test Results: Test results from this visit will be discussed in further detail at your follow-up appointment, if applicable. Discharge Plan Admission Admit Date/Time: 11/13/22 20:46 Primary Reason for Your Visit: obstructive jaundice. Attending Provider: Saulo Calderon Primary Care Provider: GERALD VILLALBA Consulting Providers: Jean Castro Instructions Additional Instructions / Restrictions: Follow up with Radiation oncology as previously scheduled. You have appointments on the , and at 3pm. Discharge Orders/Prescriptions Prescriptions: New ondansetron 8 mg tablet,disintegrating 8 mg PO BID PRN (Reason: nausea and vomiting) Qty: 30 0RF Continued levothyroxine [Tirosint] 75 mcg capsule 75 mcg PO DAILY liothyronine 5 mcg tablet 5 mcg PO DAILY mistletoe 0.05 mg/mL solution 0.5 mg subcut Q4D oxycodone 5 mg tablet 10 mg PO Q6H melatonin 5 mg tablet 15 mg PO QHS Referrals / Follow Up: GERALD VILLALBA, HAND LAUNDERER-C [Primary Care Provider] - Disposition Disposition (needs filled in before D/C Order can be placed): Home, Self Care
--- NOTE | 2022-11-14 15:56 | EX.PCM.CON.G ---
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 Patient had outpatient blood work last week on 11/06 which showed elevated bilirubin as well as a transaminitis. She had outpatient ultrasound of the liver 2 days ago which showed multiple solid nodules of the liver suggestive of metastatic deposits, a mass in the head of the pancreas and intrahepatic biliary ductal dilation as well as dilation of the common bile duct. This is concerning for an obstructive process. Patient was seen by her radiation oncologist today and sent to the emergency room for further evaluation and GI consult. Patient notes she had her first radiation today. She continues to have significant back pain but has been going on for the past 2-month since her diagnosis. She does have a compression fracture. She is on 10 mg oral oxycodone every 6 hours. Because of that she has been dealing with some constipation. She did develop nausea after radiation today which is new. Patient is undergoing palliative radiation with Dr. Arnold. Patient denies any other complaints at this time. Labs: WBC 7.4,Hgb 11.8 L, , Plt Count 477 H, Sodium 133 L, Potassium 4.0, Chloride 94 L, Carbon Dioxide 26.0, Anion Gap 13, BUN 8, Creatinine 0.60,Glucose 98, Calcium 9.9, Total Bilirubin 8.40 H, Direct Bilirubin 6.81 H, AST 282 H, ALT 171 H, Alkaline Phosphatase 951 H, Total Protein 7.5, Albumin 2.6 L, Globulin 4.9 H, Lipase 71 CT scan of the abdomen pelvis : 63 mm soft tissue mass with calcifications of the right breast. Diffuse right breast skin thickening concerning for breast carcinoma. 15 mm medial right breast nodule may be a metastatic focus. There is a pathologic compression fracture of T12. There is bilateral pneumonia. There are bilateral pleural effusions. Stable diffuse metastatic lesions to the liver. Diffuse retroperitoneal adenopathy. 11 mm dilated common bile duct with a soft tissue mass around the level of the pancreatic head. This may be a pancreatic mass versus adenopathy. Stable diffuse metastatic disease in the bones. [facility] Medical History Breast cancer Compression fracture Constipation Juanita's disease Hypothyroid Home Medications mistletoe 0.05 mg/mL subcutaneous solution 0.5 mg subcut Q4D 11/06/22 [History Last Taken Unknown] levothyroxine 75 mcg capsule (Tirosint) 75 mcg PO DAILY THYROID 11/06/22 [History Last Taken 11/13/22] liothyronine 5 mcg tablet 5 mcg PO DAILY THYROID 11/06/22 [History Last Taken 11/13/22] melatonin 5 mg tablet 15 mg PO QHS SLEEP 11/13/22 [History Last Taken 11/12/22] oxycodone 5 mg tablet 10 mg PO Q6H pain 11/13/22 [History Last Taken 11/13/22] ondansetron 8 mg disintegrating tablet 8 mg PO BID PRN nausea and vomiting #30 tabs 11/14/22 [Rx Last Taken Unknown] Allergy/AdvReac Type Severity Reaction Status Date / Time adhesive tape Allergy Mild Rash Verified 11/13/22 16:53 Iodinated Contrast Media Allergy Mild Rash Verified 11/13/22 16:53 Sulfa (Sulfonamide Allergy Mild Rash Verified 11/13/22 16:53 Antibiotics) Family History Father Depression ALS (amyotrophic lateral sclerosis) Sister Depression Grandmother Breast cancer Cervical cancer Mother Arthritis Surgical History no surgical history Social History Smoking Status: Never smoker alcohol intake: current alcohol intake frequency: holidays/special occasions only substance use type: does not use ROS Constitutional Constitutional: Denies chills, fatigue, fever(s) or malaise Eyes Eyes: Reports other Details: Scleral icterus ; Denies blurry vision ENT HEENT: Denies headache(s) or nasal discharge Cardiovascular Cardiovascular: Denies chest pain, dyspnea on exertion or syncope Respiratory/Chest Respiratory/Chest: Denies cough, shortness of breath at rest or shortness of breath with exertion Gastrointestinal Gastrointestinal: Denies constipation, diarrhea, nausea or vomiting Genitourinary Genitourinary: Denies dysuria Integumentary Integumentary: Reports jaundice and pruritus Neurologic Neurologic: Denies focal weakness, numbness or tremor(s) Psychiatric Psychiatric: Denies anxiety or depression Physical Exam Const alert and no apparent distress Resp normal respiratory effort and no retractions Cardio regular rate, regular rhythm, S1 normal heart sound and S2 normal heart sound GI normal to inspection, nondistended, normoactive bowel sounds, soft to palpation, non-tender and non-distended Skin Skin Narrative: jaundiced. Lab / Micro Data 11/14/22 06:04 11/14/22 06:04 Labs: Laboratory Results - last 24 hr 11/13/22 17:15: WBC 7.4, RBC 4.18 L, Hgb 11.8 L, Hct 37.8, MCV 90.4, MCH 28.2, MCHC 31.2 L, RDW Std Deviation 49.4 H, RDW Coeff of Gina 15.3 H, Plt Count 477 H, MPV 9.0, Immature Gran % (Auto) 1.500 H, Neut % (Auto) 76.3 H, Lymph % (Auto) 9.7 L, [place] % (Auto) 11.3 H, Eos % (Auto) 0.5, Baso % (Auto) 0.7, Absolute Neuts (auto) 5.7, Absolute Lymphs (auto) 0.72 L, Nucleated RBC % 0, Sodium 133 L, Potassium 4.0, Chloride 94 L, Carbon Dioxide 26.0, Anion Gap 13, BUN 8, Creatinine 0.60, Estim Creat Clear Calc 79.68, Est GFR (MDRD) Af Amer 136, Est GFR (MDRD) Non-Af 113, BUN/Creatinine Ratio 13.4, Glucose 98, Calcium 9.9, Total Bilirubin 8.40 H, Direct Bilirubin 6.81 H, AST 282 H, ALT 171 H, Alkaline Phosphatase 951 H, Total Protein 7.5, Albumin 2.6 L, Globulin 4.9 H, Lipase 71 11/13/22 17:30: Urine Color Brown, Urine Clarity Clear, Urine pH 6.0, Ur Specific [place] 1.025, Urine Protein 30 H, Urine Glucose (UA) Normal, Urine Ketones 150 A*, Urine Occult Blood 10 H, Urine Nitrite Positive H, Urine Bilirubin 6 H, Urine Urobilinogen 4 H, Ur Leukocyte Esterase 25 H, Urine RBC 0 SEEN, Urine WBC 0-5 SEEN, Ur Squamous Epith Cells 0-5 SEEN, Urine Bacteria 1+, Urine Mucus 0 SEEN 11/14/22 06:04: WBC 5.3, RBC 3.82 L, Hgb 10.8 L, Hct 33.7 L, MCV 88.2, MCH 28.3, MCHC 32.0, RDW Std Deviation 48.5 H, RDW Coeff of Gina 15.1 H, Plt Count 404, MPV 8.8, Immature Gran % (Auto) 1.500 H, Neut % (Auto) 74.7 H, Lymph % (Auto) 8.1 L, [place] % (Auto) 13.4 H, Eos % (Auto) 1.7, Baso % (Auto) 0.6, Absolute Neuts (auto) 3.9, Absolute Lymphs (auto) 0.43 L, Nucleated RBC % 0, Differential Comment SCANNED, Sodium 134 L, Potassium 3.7, Chloride 99, Carbon Dioxide 27.0, Anion Gap 8, BUN 5 L, Creatinine 0.51 L, Estim Creat Clear Calc 93.74, Est GFR (MDRD) Af Amer 164, Est GFR (MDRD) Non-Af 136, BUN/Creatinine Ratio 9.9 L, Glucose 86, Calcium 9.3, Total Bilirubin 7.50 H, AST 229 H, ALT 144 H, Alkaline Phosphatase 917 H, Total Protein 6.5, Albumin 2.2 L, Globulin 4.3 H, Albumin/Globulin Ratio 0.5 L, TSH 12.50 H Radiology Impression Abdomen/Pelvis CT 11/13/22 17:39 IMPRESSION: (NOT LISTED IN ORDER OF SIGNIFICANCE) 63 mm soft tissue mass with calcifications of the right breast. Diffuse right breast skin thickening concerning for breast carcinoma. 15 mm medial right breast nodule may be a metastatic focus. There is a pathologic compression fracture of T12. There is bilateral pneumonia. There are bilateral pleural effusions. Stable diffuse metastatic lesions to the liver. Diffuse retroperitoneal adenopathy. 11 mm dilated common bile duct with a soft tissue mass around the level of the pancreatic head. This may be a pancreatic mass versus adenopathy. Stable diffuse metastatic disease in the bones. Other findings as above. Electronically Signed: Marco Gill MD at 18:20 EDT , Chest X-Ray 11/14/22 06:00 IMPRESSION: undefined Assessment & Plan Assessment/Plan (1) Mass of head of pancreas: (2) Blockage of a bile duct: (3) Jaundice: PLAN: Plan 51-year-old with recent diagnosis of metastatic breast cancer to the bone and liver and possible pancreas with obstructive jaundice. 1. Pancreatic head mass with biliary obstruction with jaundice ? Plan for ERCP with decompression of the hepatobiliary system. She was explained alternatives, risk, benefits including not withstanding bleeding, infection, sepsis, perforation, need for emergent surgery . She will have an ASA of 3. 2. Stage IV breast cancer with metastasis to bone ? Currently receiving palliative radiation had her first dose today Charges/Coding Visit Charges Inpatient E&M: 35868 Init Hosp L3
--- NOTE | 2022-11-14 16:05 | RAD_ITS ---
ERCP INDICATION: Abdominal pain. 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 FINDINGS: Examination of the common bile duct demonstrates narrowing of the distal common bile duct consistent with a stricture. This was treated with stent and balloon dilatation. RAD/ERCP Biliary Only IMPRESSION: Stricture of the distal common bile duct treated with stent placement and balloon dilatation. Electronically Signed: Ankush Puckett MD at 20:52 EDT ,
--- NOTE | 2022-11-14 17:38 | OP.CCLET_ITS ---
11/14/2022 Jacquelyn Han Re : ERCP procedure for Adry Matute Dear [place] This procedure was performed on Monday, November 14, 2022. My impressions and recommendations are as follows: Impressions : - A single segmental biliary stricture was found in the upper third of the main bile duct. The stricture was indeterminate. - The lower third of the main bile duct was severely dilated, with extrinsic compression causing an obstruction. - Choledocholithiasis was found. Complete removal was accomplished by biliary sphincterotomy and balloon extraction. - A biliary sphincterotomy was performed. - The biliary tree was swept and debris, clots, mucus and sludge were found. - Cells for cytology obtained in the lower third of the main duct. - One covered metal stent was placed into the common bile duct. Recommendations : My findings are described in the full procedure note, which is enclosed. If I can be of further assistance, please feel free to contact me at . Sincerely, Darnell Holland DO 11/14/2022 5:38:01 PM This report has been signed electronically.
--- NOTE | 2022-11-14 17:38 | OP.ERCP_ITS ---
Patient Name: Adry Matute Procedure Date: 11/14/2022 3:46 PM Date of : 1970 Age: 51 Procedure: ERCP Indications: Malignant stricture of the common bile duct, Jaundice Providers: Darnell Holland DO Medicines: General Anesthesia Patient Profile: This is a 51 year old female. Refer to note in patient chart for documentation of history and physical. Patient has symptoms of acute jaundice. Complications: No immediate complications. Procedure: Pre-Anesthesia Assessment: - Prior to the procedure, a History and Physical was performed, and patient medications and allergies were reviewed. The patient is competent. The risks and benefits of the procedure and the sedation options and risks were discussed with the patient. All questions were answered and informed consent was obtained. Patient identification and proposed procedure were verified by the physician in the pre-procedure area. Mental Status Examination: alert and oriented. Airway Examination: normal oropharyngeal airway and neck mobility. Respiratory Examination: clear to auscultation. CV Examination: normal. Prophylactic Antibiotics: The patient does not require prophylactic antibiotics. Prior Anticoagulants: The patient has taken no previous anticoagulant or antiplatelet agents. After reviewing the risks and benefits, the patient was deemed in satisfactory condition to undergo the procedure. The anesthesia plan was to use general anesthesia. Immediately prior to administration of medications, the patient was re-assessed for adequacy to receive sedatives. The heart rate, respiratory rate, oxygen saturations, blood pressure, adequacy of pulmonary ventilation, and response to care were monitored throughout the procedure. The physical status of the patient was re-assessed after the procedure. After obtaining informed consent, the scope was passed under direct vision. Throughout the procedure, the patient's blood pressure, pulse, and oxygen saturations were monitored continuously. The Duodenoscope was introduced through the mouth, and advanced to the duodenum and used to locate the major papilla. The ERCP was accomplished without difficulty. The patient tolerated the procedure well. Scope In: 4:24:18 PM Scope Out: 4:48:57 PM Total Procedure Duration Time 0 hours 24 minutes 39 seconds Findings: The [employer] scout film was normal. The esophagus was successfully intubated under direct vision. The scope was advanced to a normal major papilla in the descending duodenum without detailed examination of the pharynx, larynx and associated structures, and upper GI tract. The upper GI tract was grossly normal. A straight Roadrunner wire was passed into the biliary tree. The bile duct was then deeply cannulated over the guidewire. Contrast was injected. I personally interpreted the bile duct images. Ductal flow of contrast was adequate. Image quality was excellent. Contrast extended to the entire biliary tree. Opacification of the entire biliary tree except for the cystic duct and gallbladder was successful. The maximum diameter of the ducts was 7 mm. The upper third of the main bile duct contained a single segmental stenosis 4 mm in length. The lower third of the main bile duct was severely dilated, with extrinsic compression causing an obstruction. The largest diameter was 10 mm. A 5 mm biliary sphincterotomy was made with a traction (standard) sphincterotome using ERBE electrocautery. There was no post-sphincterotomy bleeding. To discover objects, the biliary tree was swept with a 15 mm balloon starting at the bifurcation. Sludge was swept from the duct. All stones were removed. Debris was swept from the duct. Clots were swept from the duct. Mucus was swept from the duct. Sludge was swept from the duct. Cells for cytology were obtained by brushing in the lower third of the main bile duct. One 10 mm by 6 cm covered metal stent with no internal flaps was placed 5 cm into the common bile duct. Bile flowed through the stent. The stent was in good position. Impression: - A single segmental biliary stricture was found in the upper third of the main bile duct. The stricture was indeterminate. - The lower third of the main bile duct was severely dilated, with extrinsic compression causing an obstruction. - Choledocholithiasis was found. Complete removal was accomplished by biliary sphincterotomy and balloon extraction. - A biliary sphincterotomy was performed. - The biliary tree was swept and debris, clots, mucus and sludge were found. - Cells for cytology obtained in the lower third of the main duct. - One covered metal stent was placed into the common bile duct. Procedure Code(s): --- Professional --- 72423, 51, Endoscopic retrograde cholangiopancreatography (ERCP); with placement of endoscopic stent into biliary or pancreatic duct, including pre- and post-dilation and guide wire passage, when performed, including sphincterotomy, when performed, each stent 92476, 59, Endoscopic retrograde cholangiopancreatography (ERCP); with trans-endoscopic balloon dilation of biliary/pancreatic duct(s) or of ampulla (sphincteroplasty), including sphincterotomy, when performed, each duct 60633, 51, Endoscopic retrograde cholangiopancreatography (ERCP); with removal of calculi/debris from biliary/pancreatic duct(s) 61014, 59, Esophagogastroduodenoscopy, flexible, transoral; diagnostic, including collection of specimen(s) by brushing or washing, when performed (separate procedure) 0397T, Endoscopic retrograde cholangiopancreatography (ERCP), with optical endomicroscopy (List separately in addition to code for primary procedure) CPT copyright 2017 [employer]. All rights reserved. The codes documented in this report are preliminary and upon superintendent track review may be revised to meet current compliance requirements. Darnell Holland DO 11/14/2022 5:38:01 PM This report has been signed electronically. Number of Addenda: 0 Note Initiated On: 11/14/2022 3:46 PM
[2022-11-14] MEDS: 0.9% Normal Saline 1,000 ML 250 ML IV ×2 (18:33→22:01)
[2022-11-14] MEDS: MELATONIN 10 MG TABLET 15 MG PO (22:01)
[2022-11-15] MEDS: Ondansetron 4 MG/2 ML Vial IV (02:04)
[2022-11-15] MEDS: 0.9% Normal Saline 1,000 ML 250 ML IV ×2 (02:05→06:02)
[2022-11-15 02:07] VITALS: BP 128/75; PULSE 99; RESP 16; TEMP 36.6; O2SAT 94
[2022-11-15] MEDS: Liothyronine 5 MCG Tablet PO (06:03)
[2022-11-15] MEDS: Levothyroxine 75 MCG Tablet PO (06:03)
[2022-11-15 06:14] LABS: Absolute Lymphocyte Count 0.19 X10^3/uL (0.83-4.51); Absolute Neutrophil Count 7.1 X10^3/uL (2.0-7.7); Hematocrit 35.6 % (37-47); Hemoglobin 11.2 g/dL (12.0-15.0); Lymphocyte # 0.19 X10^3/ul (0.83-4.51); Lymphocyte % 2.4 % (19-41); Mean Corp Hgb Conc 31.5 g/dL (32-36); Mean Corpuscular Hgb 27.9 pg (27.0-32.0); Mean Corpuscular Volume 88.8 fL (81-99); Mean Platelet Vol. 8.9 fl (6.2-12.0); Monocyte# 0.48 X10^3/uL; Monocyte% 6.1 % (0-10); NRBC Flagged by Analyzer 0 % (0-5); Neutrophil # 7.14 X10^3/uL (2.7-7.7); Neutrophil % 90.6 % (47-70); POSITIVE DIFFERENTIAL YES; Platelet Count 447 K/mm3 (150-450); RBC Distribution Width CV 15.1 % (11.6-14.6); RBC Distribution Width SD 49.1 fl (35.1-43.9); Red Blood Count 4.01 M/mm3 (4.2-5.4); White Blood Count 7.9 K/mm3 (4.4-11.0)
[2022-11-15 06:23] LABS: Differential Indicated SCAN CRITERIA MET
[2022-11-15] MEDS: Calcium Carbonate 500 MG Tablet PO (06:40)
[2022-11-15 06:41] LABS: Differential Comment SCANNED
[2022-11-15 06:53] LABS: ALB/GLOB Ratio 0.4 RATIO (0.9-2.4); AST(SGOT) 122 U/L (15-37); Alanine Aminotransfer ALT/SGPT 98 U/L (13-56); Albumin, Serum 1.8 g/dL (3.2-5.0); Alkaline Phosphatase 761 U/L (45-117); Anion Gap 11 (5-15); BUN 5 mg/dL (7-18); BUN/Creat Ratio 18.8 RATIO (10-20); Calcium,Total 8.2 mg/dL (8.5-10.1); Chloride 103 mmol/L (98-107); Creatinine, Serum 0.27 mg/dL (0.55-1.02); EST Glomerular Filtration Rate 285 mL/min (>60); Est Glom Filt Rate - Afr Amer 345 mL/min (>60); Estimated Creatinine Clearance 177.06 ml/min; Glucose 120 mg/dL (74-106); Potassium 3.8 mmol/L (3.5-5.1); Protein, Total 5.8 g/dL (6.4-8.2); Sodium Level 134 mmol/L (136-145); T4 Free Direct 1.29 ng/dL (0.76-1.46)
--- NOTE | 2022-11-15 07:48 | PN.HOSP_ITS ---
Reason for Visit Reason for Visit: Diagnoses Malignant neoplasm of unspecified site of unspecified female breast (11/13/22) Obstruction of bile duct (11/13/22) Other specified diseases of pancreas (11/13/22) Unspecified jaundice (11/13/22) Subjective Subjective Feels well. Having some pain. Objective Data Objective Data Vital Signs: Vital Signs Temp Pulse Resp BP Pulse Ox O2 Del Method 36.6 C 99 16 128/75 H 94 Room Air 11/15/22 02:07 11/15/22 02:07 11/15/22 02:07 11/15/22 02:07 11/15/22 02:07 11/15/22 02:07 Oxygen Delivery Method Room Air Weight: 52.7 kg Body Mass Index (BMI) 22.6 Intake & Output: Intake and Output for Last 24 Hours 11/13/22 11/14/22 11/15/22 23:59 23:59 23:59 Intake Total 50 / 450 4667.67 / 4667.67 1987.5 / 1987.5 Output Total 1450 / 2050 900 / 900 Balance 50 / 200 3217.67 / 2617.67 1087.5 / 1087.5 Lab / Micro Data 11/15/22 05:45 11/15/22 05:45 Labs: Laboratory Results - last 24 hr 11/15/22 05:45: WBC 7.9, RBC 4.01 L, Hgb 11.2 L, Hct 35.6 L, MCV 88.8, MCH 27.9, MCHC 31.5 L, RDW Std Deviation 49.1 H, RDW Coeff of Gina 15.1 H, Plt Count 447, MPV 8.9, Immature Gran % (Auto) 0.900, Neut % (Auto) 90.6 H, Lymph % (Auto) 2.4 L, [place] % (Auto) 6.1, Eos % (Auto) 0.0, Baso % (Auto) 0.0, Absolute Neuts (auto) 7.1, Absolute Lymphs (auto) 0.19 L, Nucleated RBC % 0, Differential Comment SCANNED, Sodium 134 L, Potassium 3.8, Chloride 103, Carbon Dioxide 20.0 L, Anion Gap 11, BUN 5 L, Creatinine 0.27 L, Estim Creat Clear Calc 177.06, Est GFR (MDRD) Af Amer 345, Est GFR (MDRD) Non-Af 285, BUN/Creatinine Ratio 18.8, Glucose 120 H, Calcium 8.2 L, Total Bilirubin 3.20 H, AST 122 H, ALT 98 H, Alkaline Phosphatase 761 H, Total Protein 5.8 L, Albumin 1.8 L, Globulin 4.0, Albumin/Globulin Ratio 0.4 L, Free T4 1.29 Radiography Diagnostic Testing: Radiology Impression Chest X-Ray 11/14/22 06:00 IMPRESSION: undefined ERCP X-Ray 11/14/22 16:05 IMPRESSION: Stricture of the distal common bile duct treated with stent placement and balloon dilatation. Electronically Signed: Ankush Puckett MD at 20:52 EDT , Physical Exam Const alert and no apparent distress Eyes Eyes Narrative: icterus. GI normal to inspection, nondistended, normoactive bowel sounds, soft to palpation, non-tender, non-distended and hepatosplenomegaly Skin Skin Narrative: jaundice Assessment & Plan Assessment/Plan (1) Mass of head of pancreas: PLAN: Primary pancreatic lesion v metastatic lesion (breast CA) v adenopathy Causing compression on CBD, which is dilated at 11mm Pt undergoing palliative XRT for stage IV breast CA. Aggressive work up for the pancreatic mass would likely not change her mgmt at this time. 11/14: ERCP performed and a single segmental biliary stricture was found tin the upper 1/3 of the main BD. Lower 1/3 of BD was severely dilated. Choledocholithiasis was found. Complete removal performed. Sphincterotomy performed. Stent placed in CBD. Bilirubin post ERCP improved to 3.2 (down from 7.5) (2) Stage IV breast cancer in female: PLAN: Stage IV breast cancer with metastasis to bone Currently receiving palliative radiation had her first dose today She is currently on 10 mg of oxycodone every 6 hours that does not appear to be helping so we will also add OxyContin 10 mg twice daily scheduled and monitor DW Dr. Arnold. He would like for patient to have a Rx for Zofran available as outpt as she became very nauseated with treatment. Still with pain. Will add oxycodone CR (already has Rx for oxy IR) PLAN: Plan Chronic conditions: * Hypothyroidism? Stable? Continue with her home meds DVT: Lovenox
[2022-11-15 09:34] VITALS: BP 139/79; PULSE 83; RESP 16; TEMP 36.3; O2SAT 95
[2022-11-15] MEDS: oxyCODONE HCl Cr 10 MG Tablet PO (09:38)
[2022-11-15] MEDS: Enoxaparin 40 MG/0.4 ML Syringe SC (09:38)
[2022-11-15] MEDS: Ursodiol 250 MG Tablet PO (09:41)
--- NOTE | 2022-11-15 10:56 | DS.PCM_ITS ---
Providers Date of Admission: 11/13/22 Primary Care Physician: ADY LOUISE Consultations 11/13/22 21:22 Consult: Gastroenterology Routine Consulting Provider: Zackary Tomas Reason for Consult: Biliary obstruction EMERGENT Consult: No MD Notified: Yes Date Notified: 11/13/22 Time Notified: 20:51 Method of Notification: ED Physician Initiated 11/14/22 05:24 Consult: Onc/Wound/home mortgage disclosure act specialist Routine Comment: Reason for Consult:: Right breast wound Reason For Visit: JAUNDICE WITH COMMON BILE DUCT OBSTRUCTION Diagnosis Discharge Diagnosis (1) Mass of head of pancreas: Status: Inactive Code(s): K86.89 - Other specified diseases of pancreas Plan: Primary pancreatic lesion v metastatic lesion (breast CA) v adenopathy Causing compression on CBD, which is dilated at 11mm Pt undergoing palliative XRT for stage IV breast CA. Aggressive work up for the pancreatic mass would likely not change her mgmt at this time. 11/14: ERCP performed and a single segmental biliary stricture was found tin the upper 1/3 of the main BD. Lower 1/3 of BD was severely dilated. Choledocholithiasis was found. Complete removal performed. Sphincterotomy perfor med. Stent placed in CBD. Bilirubin post ERCP improved to 3.2 (down from 7.5) (2) Stage IV breast cancer in female: Status: Inactive Code(s): C50.919 - Malignant neoplasm of unspecified site of unspecified female breast Plan: Stage IV breast cancer with metastasis to bone Currently receiving palliative radiation had her first dose today She is currently on 10 mg of oxycodone every 6 hours that does not appear to be helping so we will also add OxyContin 10 mg twice daily scheduled and monitor DW Dr. Arnold. He would like for patient to have a Rx for Zofran available as outpt as she became very nauseated with treatment. Still with pain. Will add oxycodone CR (already has Rx for oxy IR) Plan Chronic conditions: * Hypothyroidism? Stable? Continue with her home meds DVT: Lovenox Medications at Discharge Home Medications mistletoe 0.05 mg/mL subcutaneous solution 0.5 mg subcut Q4D 11/06/22 levothyroxine 75 mcg capsule (Tirosint) 75 mcg PO DAILY THYROID 11/06/22 liothyronine 5 mcg tablet 5 mcg PO DAILY THYROID 11/06/22 melatonin 5 mg tablet 15 mg PO QHS SLEEP 11/13/22 oxycodone 5 mg tablet 10 mg PO Q6H pain 11/13/22 ondansetron 8 mg disintegrating tablet 8 mg PO BID PRN nausea and vomiting #30 tabs 11/14/22 oxycodone 10 mg tablet,crush resistant,extended release 12 hr 10 mg PO BID 3 days #6 tabs 11/15/22 Hospital Course Operations None Procedures - (ERCP) Summary of Care Provided Minutes Spent on Discharge: 32 Weight / BMI Weight Weight: 52.7 kg Body Mass Index (BMI) 22.6 ABG / Lab / Microbiology Data 11/15/22 05:45 11/15/22 05:45 Laboratory: Laboratory Results - last 24 hr 11/15/22 05:45: WBC 7.9, RBC 4.01 L, Hgb 11.2 L, Hct 35.6 L, MCV 88.8, MCH 27.9, MCHC 31.5 L, RDW Std Deviation 49.1 H, RDW Coeff of Gina 15.1 H, Plt Count 447, MPV 8.9, Immature Gran % (Auto) 0.900, Neut % (Auto) 90.6 H, Lymph % (Auto) 2.4 L, Gilmer % (Auto) 6.1, Eos % (Auto) 0.0, Baso % (Auto) 0.0, Absolute Neuts (auto) 7.1, Absolute Lymphs (auto) 0.19 L, Nucleated RBC % 0, Differential Comment SCANNED, Sodium 134 L, Potassium 3.8, Chloride 103, Carbon Dioxide 20.0 L, Anion Gap 11, BUN 5 L, Creatinine 0.27 L, Estim Creat Clear Calc 177.06, Est GFR (MDRD) Af Amer 345, Est GFR (MDRD) Non-Af 285, BUN/Creatinine Ratio 18.8, Glucose 120 H, Calcium 8.2 L, Total Bilirubin 3.20 H, AST 122 H, ALT 98 H, Alkaline Phosphatase 761 H, Total Protein 5.8 L, Albumin 1.8 L, Globulin 4.0, Albumin/Globulin Ratio 0.4 L, Free T4 1.29 Microbiology: Microbiology 11/13/22 17:30 Urine, Clean Catch Urine Culture - Final Mixed Gram Positive Organisms Radiography Diagnostic Testing: Radiology Impression Chest X-Ray 11/14/22 06:00 IMPRESSION: undefined ERCP X-Ray 11/14/22 16:05 IMPRESSION: Stricture of the distal common bile duct treated with stent placement and balloon dilatation. Electronically Signed: Ankush Puckett MD at 20:52 EDT , D/C Instructions Discharge Diet: No restrictions Call your doctor if you observe: - (worsening abdominal pain) Meaningful Use Info Meaningful Use Diagnoses (Choose all that apply): None applicable Discharge Plan Admission Admit Date/Time: 11/13/22 20:46 Primary Reason for Your Visit: obstructive jaundice. Attending Provider: Saulo Calderon Primary Care Provider: GERALD VILLALBA Consulting Providers: Jean Castro Instructions Additional Instructions / Restrictions: Follow up with Radiation oncology as previously scheduled. You have appointments on the , and at 3pm. Discharge Orders/Prescriptions Prescriptions: New ondansetron 8 mg tablet,disintegrating 8 mg PO BID PRN (Reason: nausea and vomiting) Qty: 30 0RF oxycodone 10 mg tablet,oral only,ext.rel.12 hr 10 mg PO BID 3 Days Qty: 6 0RF Continued levothyroxine [Tirosint] 75 mcg capsule 75 mcg PO DAILY liothyronine 5 mcg tablet 5 mcg PO DAILY mistletoe 0.05 mg/mL solution 0.5 mg subcut Q4D oxycodone 5 mg tablet 10 mg PO Q6H melatonin 5 mg tablet 15 mg PO QHS Referrals / Follow Up: GERALD VILLALBA, SALES [employer] [Primary Care Provider] - Within 2 Weeks Disposition Disposition (needs filled in before D/C Order can be placed): Home, Self Care Charges/Coding Visit Charges Inpatient E&M: 05631 Disch Hosp >30min
[2022-11-15] MEDS: oxyCODONE 5 MG Tablet 10 MG PO (11:33)
[2022-11-16 06:37] LABS: Carbohydrate AG 19-9 320 U/mL (0-35)
== END 2022-11-15 12:36 | disposition home or self-care (01) | DRG 439 ==
LOC: ED 19:48 → MS3 21:12
PROVIDERS: Internal Medicine Gastroenterology; Admitting Provider Family Medicine; Emergency Provider Emergency Medicine; PCP Registered Nurse
PROC: 0FC98ZZ Extirpation of Matter from Common Bile Duct, Via Natural or Artificial Opening Endoscopic (ICD-10-PCS; CPT 43260; principal; 2022-11-14 14:55)
DX: K86.89 Other specified diseases of pancreas (principal); C79.51 Secondary malignant neoplasm of bone; C24.0 Malignant neoplasm of extrahepatic bile duct; K80.51 Calculus of bile duct without cholangitis or cholecystitis with obstruction; R17 Unspecified jaundice; C50.919 Malignant neoplasm of unspecified site of unspecified female breast; K83.8 Other specified diseases of biliary tract; E03.9 Hypothyroidism, unspecified; Z80.3 Family history of malignant neoplasm of breast; Z79.2 Long term (current) use of antibiotics
CPT/HCPCS: 36415; 71045; 74176; 74328; 76000; 77387; 77412; 80048; 80053; 80076; 81001; 83690; 84439; 84443; 85025; 86301; 87086; 87088; 88108; 88161; 88305; 88313; 93005; 97802; 99284; J7030; J7120; A4216; J2405